=== PATIENT | male | born 1950 | race Caucasian/White ===

== ENCOUNTER 2017-07-02 09:04 | Emergency (ER) | payer OTHER ==
[2017-07-02 09:27] VITALS: TEMP 97.5; BMI 29.2
--- NOTE | 2017-07-02 10:18 | PDOC ---
History of Present Illness - General History Source: Patient Exam Limitations: No Limitations - History of Present Illness Initial Comments: 07/02/17 10:42 Patient is a 67 year old male with a significant past medical history of HCV s/ p treatment, Dilated cardiomyopathy secondary to polysubstance abuse (remote past) who presents to the ED with complaints of head pain, s/p fall that occured this morning. Patient reports walking outside when he slipped and fell on ice, hitting the back of his head on the ground. He reports experiencing immediate pain on the back of his head following the fall as well as mid neck pain. 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 Denies chest pain, SOB. Denies loss of consciousness. Denies fevers, chills. Denies nausea, vomiting. Denies any other symptoms. Allergies: None Social history: No smoking. No alcohol. No illicit drugs. Surgical history: None PMD: None <Deo Camarena - Last Filed: 07/02/17 10:42> <Leslie Mckeon - Last Filed: 07/02/17 11:16> - General Chief Complaint: Injury Stated Complaint: FALL Time Seen by Provider: 07/02/17 09:49 Past History <Deo Camarena - Last Filed: 07/02/17 10:42> - Past Medical History Cardiac Disorders: Yes COPD: No Liver Disease: Yes (CHIRROSIS, HEP C.) - Suicide/Smoking/Psychosocial Hx Smoking History: Never smoked Hx Alcohol Use: No Drug/Substance Use Hx: No Substance Use Type: None <Leslie Mckeon - Last Filed: 07/02/17 11:16> - Past Medical History Allergies/Adverse Reactions: Allergies Allergy/AdvReac Type Severity Reaction Status Date / Time No Known Allergies Allergy Verified 07/02/17 09:18 Home Medications: Ambulatory Orders NK [No Known Home Medication] 01/28/16 Review of Systems - Review of Systems Able to Perform ROS?: Yes Comments:: 07/02/17 10:43 GENERAL/CONSTITUTIONAL: No fever or chills. No weakness. HEAD, EYES, EARS, NOSE AND THROAT: +Posterior head pain. +Neck pain. No change in vision. No ear pain or discharge. No sore throat. GASTROINTESTINAL: No nausea, vomiting, diarrhea or constipation. GENITOURINARY: No dysuria, frequency, or change in urination. CARDIOVASCULAR: No chest pain or shortness of breath. RESPIRATORY: No cough, wheezing, or hemoptysis. MUSCULOSKELETAL: +Bilateral arm numbness. +Bilateral arm tingles. No joint or muscle swelling or pain. No neck or back pain. SKIN: No rash NEUROLOGIC: No headache, vertigo, loss of consciousness, or change in strength/ sensation. ENDOCRINE: No increased thirst. No abnormal weight change. HEMATOLOGIC/LYMPHATIC: No anemia, easy bleeding, or history of blood clots. ALLERGIC/IMMUNOLOGIC: No hives or skin allergy. All Other Systems: Reviewed and Negative <Deo Camarena - Last Filed: 07/02/17 10:42> *Physical Exam - Vital Signs Last Vital Signs Temp Pulse Resp BP Pulse Ox 97.5 F L 69 18 135/82 98 07/02/17 09:16 07/02/17 09:16 07/02/17 09:16 07/02/17 09:16 07/02/17 09:16 <Deo Camarena - Last Filed: 07/02/17 10:42> - Vital Signs Last Vital Signs Temp Pulse Resp BP Pulse Ox 97.5 F L 69 18 135/82 98 07/02/17 09:16 07/02/17 09:16 07/02/17 09:16 07/02/17 09:16 07/02/17 09:16 - Physical Exam Comments: GENERAL: Awake, alert, and fully oriented, in no acute distress HEAD: No signs of trauma EYES: PERRLA, EOMI, sclera anicteric, conjunctiva clear NECK: C-collar in place. No midline spinal tenderness, no stepoffs. EXTREMITIES: Normal range of motion, no edema. No clubbing or cyanosis. No cords, erythema, or tenderness NEUROLOGICAL: Cranial nerves II through XII grossly intact. Normal speech. Motor and sensation intact. SKIN: Warm, Dry, normal turgor, no rashes or lesions noted. <Leslie Mckeon - Last Filed: 07/02/17 11:16> Medical Decision Making - Medical Decision Making 07/02/17 11:14 C-collar removed following CT c-spine results. We discussed the results, and that he should follow up with NSx based on CT results- the narrowing of the foramina are not related to today's fall, however, the symptoms in his arm following the fall may be related. No neuro deficits on exam at present. <Leslie cMkeon - Last Filed: 07/02/17 11:16> *DC/Admit/Observation/Transfer - Attestations Scribe Attestion: 07/02/17 10:43 Documentation prepared by Deo Camarena, acting as medical imaging technologist for Leslie Mckeon MD, MD/DO. <Deo Camarena - Last Filed: 07/02/17 10:42> - Discharge Dispostion Admit: No <Leslie Mckeon - Last Filed: 07/02/17 11:16> Diagnosis at time of Disposition: Head injury Qualifiers: Encounter type: initial encounter Qualified Code(s): S09.90XA - Unspecified injury of head, initial encounter - Discharge Dispostion Disposition: HOME Condition at time of disposition: Stable - Referrals Referrals: Audie Kirkpatrick MD [Staff Physician] - - Patient Instructions Printed Discharge Instructions: DI for Closed Head Injury
[2017-07-02 11:30] VITALS: BP 129/74; PULSE 72
== END 2017-07-02 11:30 | disposition home or self-care (01) ==
LOC: JER 09:04
DX: S09.8XXA Other specified injuries of head, initial encounter (principal); W00.0XXA Fall on same level due to ice and snow, initial encounter; Y93.89 Activity, other specified; Y92.89 Other specified places as the place of occurrence of the external cause; Y99.8 Other external cause status
CPT/HCPCS: 70450-TC; 72125-TC; 99281-25